=== PATIENT | female | born 1960 | race African-American/Black ===

== ENCOUNTER 2018-09-21 21:09 | Observation (INO) | payer OTHER ==
[2018-09-21 21:17] VITALS: BMI 40.3
--- NOTE | 2018-09-21 21:19 | PDOC ---
History of Present Illness - General Chief Complaint: Chest Pain Stated Complaint: COLD SYMPTOMS Time Seen by Provider: 09/21/18 21:19 - History of Present Illness Initial Comments: 09/21/18 23:20 The patient is a 58 year old female with a history of HTN, GERD who presents for evaluation of chest pain and shortness of breath. The patient reports a 2- 3 day history of chest heaviness that has been intermittent. She notes that she has not been feeling herself over the past 1 week and initially believed that she had a viral illness. However, she began experiencing shortness of breath with exertion today which was unusual for her prompting her presentation to the ED for further evaluation. She otherwise denies fevers, chills, nausea, vomiting, abdominal pain, leg swelling, recent long travel, or changes with urination or bowel movements. Past History - Past Medical History Allergies/Adverse Reactions: Allergies Allergy/AdvReac Type Severity Reaction Status Date / Time MONALISA Inhibitors Allergy Verified 09/21/18 21:14 Home Medications: Ambulatory Orders Albuterol Sulfate Inhaler - [Ventolin HFA Inhaler -] 1 - 2 inh PO QID PRN Omeprazole 40 mg PO DAILY 09/22/18 Valsartan 160 mg PO Q48H 09/22/18 COPD: No HTN: Yes Other medical history: acid reflux - Surgical History Cholecystectomy: Yes - Suicide/Smoking/Psychosocial Hx Smoking History: Never smoked Review of Systems - Review of Systems Comments:: 09/21/18 23:24 Constitutional: No fevers, chills, fatigue, malaise HEENT: No Rhinorrhea, nasal congestion, visual changes Cardiovascular: Chest heaviness. No syncope, palpitations, lightheadedness Respiratory: COB. No Cough, Hemoptysis, Gastrointestinal: No Abdominal pain, Nausea, Vomiting, Constipation, Diarrhea, Melena Genitourinary: No Dysuria, Frequency, Urgency, Hesitancy, Hematuria, Flank pain Musculoskeletal: No Myalgia, arthralgia Skin: No rashes, itching, bruising, pallor Neurologic: No Headache, Dizziness, Numbness, Weakness, or Tingling Psychiatric: No Hallucinations. No SI or HI *Physical Exam - Vital Signs Last Vital Signs Temp Pulse Resp BP Pulse Ox 98.4 F 86 18 144/100 100 09/21/18 21:14 09/21/18 21:14 09/21/18 21:14 09/21/18 21:14 09/21/18 21:14 - Physical Exam Comments: 09/21/18 23:25 General Appearance: Nourished. Obese, No Apparent Distress HEENT: No Pharyngeal Erythema, Tonsillar Exudate, Tonsillar Erythema Neck: No Cervical Lymphadenopathy Respiratory/Chest: Lungs Clear, Normal Breath Sounds. No Crackles, Rales, Rhonchi, Wheezing Cardiovascular: Regular Rhythm, Regular Rate. No Murmur, Gallops, Rubs Gastrointestinal/Abdominal: Normal Bowel Sounds, Soft. No Guarding, Rebound, Tenderness Musculoskeletal: No CVA Tenderness Extremity: Normal Capillary Refill Integumentary: Normal Color, Dry, Warm Neurologic: Fully Oriented, Alert, Normal Mood/Affect, Normal Response, Heart Score/ECG Review - History History: Slightly suspicious - Electrocardiogram EKG: Non specific repolarization disturbance - Age Age: 45-65 - Risk Factors Risk Factors Heart Score: Yes Hx Hypercholesterolemia, Yes Hx Hypertension, Yes Hx Obesity Based on the list above the patient has:: >/=3 risk factors or Hx atherosclerotic disease - Troponin Troponin: </= normal limit - Score Heart Score - Total: 4 #1 ECG reviewed & interpreted by me at: 23:26 General ECG Interpretation: Sinus Rhythm, Normal Rate, Normal Intervals, No acute ischemic changes ED Treatment Course - LABORATORY CBC & Chemistry Diagram: 09/22/18 06:05 09/22/18 06:05 Medical Decision Making - Medical Decision Making 09/21/18 23:26 The patient is a 58 year old female with a history of HTN, GERD who presents for evaluation of chest pain and shortness of breath. Differential includes but is not limited to: ACS, Arrhythmia, Pneumonia, Infectious, Metabolic Derangement. Given the patient's history and physical exam, we will obtain a cbc, cmp, troponin, bnp, ekg, chest plain film to evaluate further. We will continue to monitor and reassess while here in the ED. 23:55 CBC, cmp, troponin, bnp are unremarkable. Chest plain film is unremarkable. Given the patient's cardiac risk factors, we believe she requires observation admission for further management. *DC/Admit/Observation/Transfer Diagnosis at time of Disposition: Shortness of breath on exertion Chest pain Qualifiers: Chest pain type: unspecified Qualified Code(s): R07.9 - Chest pain, unspecified - Discharge Dispostion Condition at time of disposition: Improved Decision to Admit order: Yes - Referrals - Patient Instructions - Post Discharge Activity
--- NOTE | 2018-09-21 21:23 | PDOC ---
Attending Attestation - Resident Resident Name: Selwyn Tipton - ED Attending Attestation I have performed the following: I have examined & evaluated the patient, The case was reviewed & discussed with the resident, I agree w/resident's findings & plan, Exceptions are as noted <Neisha Moreno - Last Filed: 09/21/18 21:22> - HPI HPI: 09/21/18 21:50 The patient is a 58 year old female, with a significant past medical history of HTN and obese, who presents to the ED complaining of chest pain and shortness of breath for the past few days. She describes her chest pain as a heaviness sensation, ranging from mild to moderate. She denies any radiation. She reports that her shortness of breath is worsened with walking. She notes that she has not been feeling well lately and has been having nasal congestion associated with her chief complaint. The patient denies headache and dizziness. Denies fever, chills, nausea, vomiting, diarrhea or constipation. Allergies: MONALISA inhibitors Past surgical history: None reported Social History: No alcohol, tobacco or drug use reported - Physicial Exam PE: 09/21/18 21:50 Constitutional: Awake, alert, oriented. No acute distress. Head: Normocephalic. Atraumatic Eyes: PERRL. EOMI. Conjunctivae are not pale. ENT: Mucous membranes are moist and intact. Posterior pharynx without exudates or erythema. Uvula midline. Neck: Supple. Full ROM. No lymphadenopathy. Cardiovascular: Regular rate. Regular rhythm. S1, S2 regular. Distal pulses are 2+ and symmetric. Pulmonary/Chest: No evidence of respiratory distress. Clear to auscultation bilaterally No wheezing, rales or rhonchi. Abdominal: Soft and non-distended. There is no tenderness. No rebound, guarding or rigidity. No organomegaly. No palpable masses. Good bowel sounds. Back: No CVA tenderness. Musculoskeletal: No edema. No cyanosis. No clubbing. Full range of motion in all extremities. Nocalf tenderness. Radial/pedal pulses are intact and 2+ bilaterally Skin: Skin is warm and dry. No petechiae. No purpura. Neurological: Alert and oriented to person, place, and time. Cranial nerves II -XII are grossly intact. Normal speech. Strength is grossly symmetric. No sensory deficits. Psychiatric: Good eye contact. Normal interaction, affect and behavior. <Matteo Martin - Last Filed: 09/21/18 21:51>
[2018-09-21 21:56] LABS: BASO % 1.1 % (0-2.0); EOS % 1.2 % (0-4.5); HEMATOCRIT 39.4 % (32.4-45.2); HEMOGLOBIN 12.7 GM/dL (10.7-15.3); LYMPH % 39.4 % (8-40); MCH 26.7 pg (25.7-33.7); MCHC 32.2 g/dl (32.0-36.0); MEAN CELL VOLUME 82.9 fl (80-96); MEAN PLT VOLUME 9.2 fl (7.5-11.1); MONO % 7.6 % (3.8-10.2); NEUT % 50.7 % (42.8-82.8); PLATELET COUNT 205 K/MM3 (134-434); RBC 4.75 M/mm3 (3.60-5.2); RDW 14.8 % (11.6-15.6); WHITE BLOOD COUNT 8.1 K/mm3 (4.0-10.0)
[2018-09-21 22:24] LABS: ALBUMIN 3.5 g/dl (3.4-5.0); ALK PHOS 103 U/L (45-117); ANION GAP 7 MMOL/L (8-16); BILIRUBIN,TOTAL 0.4 mg/dL (0.2-1); BLOOD UREA NITROGEN 10 mg/dL (7-18); CALCIUM 8.8 mg/dL (8.5-10.1); CHLORIDE 109 mmol/L (98-107); CO2 25 mmol/L (21-32); CREATININE 0.9 mg/dL (0.55-1.3); GLUCOSE,RANDOM 86 mg/dL (74-106); POTASSIUM 3.9 mmol/L (3.5-5.1); SGOT/AST 20 U/L (15-37); SGPT/ALT 22 U/L (13-61); SODIUM 142 mmol/L (136-145); TOT PROT 7.4 g/dl (6.4-8.2)
--- NOTE | 2018-09-22 00:02 | HP ---
CHIEF COMPLAINT: chest pain , SOB upon walking. PCP:DR. Steve HISTORY OF PRESENT ILLNESS: The patient is a 58 year old female with a history of HTN, GERD who presents for evaluation of chest pain and shortness of breath. The patient reports a 2- 3 day history of chest heaviness that has been intermittent. She notes that she has not been feeling herself over the past 1 week and initially believed that she had a viral illness. However, she began experiencing shortness of breath with exertion today which was unusual for her prompting her presentation to the ED for further evaluation. She otherwise denies fevers, chills, nausea, vomiting, abdominal pain, leg swelling, recent long travel, or changes with urination or bowel movements. ER course was notable for: (1)cbc , cmp (2)Trop negative (3)EKG: NSR Recent Travel:denies PAST MEDICAL HISTORY: as per HPI PAST SURGICAL HISTORY: Cholecystectomy, Appendectomy Social History: Smoking:denies Alcohol:denies Drugs: denies Family History: Allergies MONALISA Inhibitors Allergy (Verified 09/21/18 21:14) HOME MEDICATIONS: REVIEW OF SYSTEMS CONSTITUTIONAL: Absent: fever, chills, diaphoresis, generalized weakness, malaise, loss of appetite, weight change HEENT: Absent: rhinorrhea, nasal congestion, throat pain, throat swelling, difficulty swallowing, mouth swelling, ear pain, eye pain, visual changes CARDIOVASCULAR: Absent: chest pain, syncope, palpitations, irregular heart rate, lightheadedness , peripheral edema RESPIRATORY: Absent: cough, shortness of breath, dyspnea with exertion, orthopnea, wheezing, stridor, hemoptysis GASTROINTESTINAL: Absent: abdominal pain, abdominal distension, nausea, vomiting, diarrhea, constipation, melena, hematochezia GENITOURINARY: Absent: dysuria, frequency, urgency, hesitancy, hematuria, flank pain, genital pain MUSCULOSKELETAL: Absent: myalgia, arthralgia, joint swelling, back pain, neck pain SKIN: Absent: rash, itching, pallor HEMATOLOGIC/IMMUNOLOGIC: Absent: easy bleeding, easy bruising, lymphadenopathy, frequent infections ENDOCRINE: Absent: unexplained weight gain, unexplained weight loss, heat intolerance, cold intolerance NEUROLOGIC: Absent: headache, focal weakness or paresthesias, dizziness, unsteady gait, seizure, mental status changes, bladder or bowel incontinence PSYCHIATRIC: Absent: anxiety, depression, suicidal or homicidal ideation, hallucinations. PHYSICAL EXAMINATION Vital Signs - 24 hr 09/21/18 21:14 Temperature 98.4 F Pulse Rate 86 Respiratory 18 Rate Blood Pressure 144/100 O2 Sat by Pulse 100 Oximetry (%) GENERAL: Awake, alert, and fully oriented, in no acute distress. HEAD: Normal with no signs of trauma. EYES: Pupils equal, round and reactive to light, extraocular movements intact, sclera anicteric, ENT: Moist mucous membranes. NECK: Normal range of motion, supple LUNGS: CTA B/L . No wheezes, and no crackles. No accessory muscle use. HEART: Regular rate and rhythm, normal S1 and S2 without murmur, rub or gallop. ABDOMEN: Obese, Soft, nontender, not distended, normoactive bowel sounds, no guarding, no rebound, Surgical scar MUSCULOSKELETAL: Normal range of motion at all joints. No bony deformities or tenderness. No CVA tenderness. LOWER EXTREMITIES: 2+ pulses, warm, well-perfused. No calf tenderness. No peripheral edema. NEUROLOGICAL: Cranial nerves II-XII intact. Normal speech. Normal gait. PSYCHIATRIC: Cooperative. SKIN: Warm, dry, Laboratory Results - last 24 hr 09/21/18 09/21/18 09/21/18 21:48 21:48 21:48 WBC 8.1 RBC 4.75 Hgb 12.7 Hct 39.4 MCV 82.9 MCH 26.7 MCHC 32.2 RDW 14.8 Plt Count 205 MPV 9.2 Absolute Neuts (auto) 4.1 Neutrophils % 50.7 Lymphocytes % 39.4 Monocytes % 7.6 Eosinophils % 1.2 Basophils % 1.1 Nucleated RBC % 0 Sodium 142 Potassium 3.9 Chloride 109 H Carbon Dioxide 25 Anion Gap 7 L BUN 10 Creatinine 0.9 Creat Clearance w eGFR > 60 Random Glucose 86 Calcium 8.8 Total Bilirubin 0.4 AST 20 ALT 22 Alkaline Phosphatase 103 Creatine Kinase 196 H Creatine Kinase Index 0.7 CK-MB (CK-2) 1.5 Troponin I < 0.02 B-Natriuretic Peptide 29.3 Total Protein 7.4 Albumin 3.5 CBC, [facility] 09/21/18 21:48 09/21/18 21:48 ASSESSMENT/PLAN: The patient is a 58 year old female with a history of HTN, GERD who presents for evaluation of chest pain and shortness of breath.admiited to obs tele to R/ O ACS . # Atypical Chest pain likely musclo skeletal can not R/O ACS unlikely PE , * pt work in mental facility with moving patient , reports musculo skeletal chest pain with different position but she reports SOB when walking * Trop negative , trend * EKG : NSR with no St, T wave changes * Echo * ESR, CRP * cxr * well score 0 * recent stress test within last year negative per pt , was done at [facility] out pt. # HTN , stable * resume valsartan 160 mg po Q 48 hr # Palpitation * UA * TSH # Morbid obesity * BMI of 40.4 kg * Educated about losing weight and exercise, change life style * consider Bariatric eval as out pt # FEN * No standing fluids * E: Monitor * N: Low sodium diet # Proph * Dvt: Scds Both legs , Lovenox 40 mg Po daily * GI: omeprazole daily # Dispo * admit to obs tele Visit type - Emergency Visit Emergency Visit: Yes ED Registration Date: 09/21/18 Care time: The patient presented to the Emergency Department on the above date and was hospitalized for further evaluation of their emergent condition. - New Patient This patient is new to me today: Yes Date on this admission: 09/22/18 - Critical Care Critical Care patient: No
[2018-09-22] MEDS ORDERED: IBUPROFEN 400 MG TABLET (FP) PO PRN (01:12)
[2018-09-22] MEDS ORDERED: ASPIRIN 81 MG CHEWABLE TABLETS PO ONE (01:17)
[2018-09-22] MEDS ORDERED: ASPIRIN 81 MG CHEWABLE TABLETS ONE (02:27)
--- NOTE | 2018-09-22 03:39 | PN ---
Teaching Attending Note Name of Resident: Brock Yusuf ATTENDING PHYSICIAN STATEMENT I saw and evaluated the patient. I reviewed the resident's note and discussed the case with the resident. I agree with the resident's findings and plan as documented. SUBJECTIVE: Seen and examined; please see resident note for further historical details. She is a 58 y/o AAF with a PMH of HTN and morbid obesity with BMI >40. She has had a stress test done within the pst 12 months at [facility] that we don't have the report for but are told by the patient it is negative. She presents with atypical chest pain associated with dyspnea on exertion. She is afebrile and hemodynamically stable saturating high 90s on RA. 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 It is reproducible on the R-side, L-side, and over the sternum; the palpation over the R/L sides is associated with pain in the pectoral muscles. SOB not at rest and wasn't sudden onset. She is at risk for BLOSSOM. Nonsmoker, nondrinker. She takes vasartan for her HTN. She will be admitted to the medicine service to r/o ACS. 10 sys ROS done and negative aside from HPI PMH and PSH reviewed FH negative for sudden cardiac Socially denies EtOH, tobacco, or drug abuse OBJECTIVE: VS, labs, imaging reviewed NAD, AAO, resting in bed RRR s1/2 no mgr Lungs CTAB with sym exp; limited exam 2/2 body habitus NT ND +BS in all 4 quadrants Skin without rashes or abbrasions CN2-12 wnl, no fnd -EKG shows NSR with Q waves in III and poor baseline to interpret for Q waves in aVF and II; repeat pending. No ST-T changes concerning for acute IA. ME interval 218 consistent with 1st degree AV block. -CXR without acute disease per my interpretation -Labs show unremarkable CBC, BMP, Coags, LFTs. Negative cardiac enz x1. BNP wnl. No prior CV records. CK only slightly over ULN (196 with 192 being upper limit). Repeat CE's pending. A1c, lipids, TSH pending. ASSESSMENT AND PLAN: Mrs. Mohan is a 58 y/o AAF with moderate risk factors for CAD and a self- reported negative stress test within 12 months who presents with atypical CP. 1) Atypical Chest Pain in Adult -Story is not suspicious for ACS but it may present atypically with females. Ddx is suspect for ACS vs. costochondritis; much less likely PE but can't r/o due to age >50 with PERC rule. Will monitor on telemetry, trend troponins, obtain old stress test records to confirm, and check an echo for the time being. Given her atypical sx, negative troponin, etc. in the setting of negative stress test within 12 months, it seems that this history argues against true ACS picture but will be vigilant. Checking a D-Dimer (sedetary lifestyle but not frankly immobile) but could be falsely elevated. PRN APAP for the potential costochondritis. Obtain labs to fully stratify her risk, 2) Dyspnea on Exertion -No records of desatting; never occurs at rest, only with exertion. We will go ahead and we will r/o ACS and get a D-dimer as mentioned above. No h/o reactive airway disease, not a current smoker. BMI is 40. If no desaturations or further sx inpatient and the aforementioned ACS/PE ruled out, we can likely proceed with an outpatient workup. Would be beneficial to obtain a sleep study as an outpatient and to do an ambulatory pulse ox. 3) HTN -Continue her home medication; adjust PRN in accordance with GDMT 3) Morbid obesity -Internal Affairs Investigator on lifestyle modifications prior to DC. 4) First Degree AV Block -Incidental finding on EKG; monitor. FENA -PO fluids encouraged -PRN replete -Cardiac Diet, low pamela -As tolerated Full Code
[2018-09-22 06:20] LABS: BASO % 0.6 % (0-2.0); EOS % 1.9 % (0-4.5); HEMATOCRIT 38.8 % (32.4-45.2); LYMPH % 36.8 % (8-40); MEAN CELL VOLUME 83.9 fl (80-96); MEAN PLT VOLUME 8.7 fl (7.5-11.1); MONO % 9.1 % (3.8-10.2); NEUT % 51.6 % (42.8-82.8); PLATELET COUNT 196 K/MM3 (134-434); RBC 4.63 M/mm3 (3.60-5.2); RDW 15.1 % (11.6-15.6); WHITE BLOOD COUNT 6.5 K/mm3 (4.0-10.0)
[2018-09-22 06:33] LABS: INR 1.05 (0.83-1.09); PROTHROMBIN TIME (PATIENT) 12.4 SEC (9.7-13.0)
[2018-09-22 06:51] LABS: ALBUMIN 3.3 g/dl (3.4-5.0); ALK PHOS 98 U/L (45-117); ANION GAP 4 MMOL/L (8-16); BILIRUBIN,TOTAL 0.3 mg/dL (0.2-1); BLOOD UREA NITROGEN 15 mg/dL (7-18); CALCIUM 9.1 mg/dL (8.5-10.1); CHLORIDE 110 mmol/L (98-107); CHOLESTEROL 179 mg/dL (50-200); CO2 30 mmol/L (21-32); GLUCOSE,RANDOM 103 mg/dL (74-106); MAGNESIUM 2.1 mg/dL (1.8-2.4); PHOSPHOROUS 3.6 mg/dL (2.5-4.9); POTASSIUM 4.1 mmol/L (3.5-5.1); SGOT/AST 20 U/L (15-37); SGPT/ALT 21 U/L (13-61); SODIUM 144 mmol/L (136-145); TOT PROT 6.8 g/dl (6.4-8.2)
[2018-09-22 06:57] LABS: CHOLESTEROL 183 mg/dL (50-200); HDL CHOLESTEROL 49 mg/dL (40-60); TRIGLYCERIDES 117 mg/dL (0-150)
[2018-09-22 07:51] VITALS: TEMP 97.9
[2018-09-22] MEDS ORDERED: VALSARTAN 80 MG TABLET (UD) ONE (09:54)
[2018-09-22] MEDS ORDERED: PANTOPRAZOLE 20 MG TABLET (FP) PO SCH (10:00)
[2018-09-22] MEDS ORDERED: ENOXAPARIN NA (PORCINE) 40 MG/0.4 ML DISP.SYRIN SQ SCH (10:00)
[2018-09-22] MEDS ORDERED: VALSARTAN 160 MG TABLET (UD) PO SCH (10:00)
[2018-09-22 10:07] VITALS: BP 158/69; PULSE 63
--- NOTE | 2018-09-22 10:54 | DS ---
Physical Examination Vital Signs: Vital Signs Temperature 97.9 F 09/22/18 10:06 Pulse Rate 63 09/22/18 10:06 Respiratory Rate 18 09/22/18 10:06 Blood Pressure 158/69 09/22/18 10:06 O2 Sat by Pulse Oximetry (%) 100 09/22/18 10:06 Findings/Remarks: denies chest tightness or chest pain. no SOB,reports being at her baseline. she reports coming to the hospital because she felt fatigued and tired with her chest tight walking in cold wheather . has h/o ASthma . PE: VS reviewed. NAD , MMM, CV: RRR, no JVD , no MRG Lungs: CTAB , good air entry . Ext : no edema , no erythema . Abd: obese, soft, old surgical scar. Non tender. MS: TTP in R sided chest wall, and on upper breast. breast exam: no masses or skin lesions. no LAP in axilla . no discharge from nipple . Labs: CBC, BMP 09/22/18 06:05 09/22/18 06:05 Discharge Summary Reason For Visit: SHORT OF BREATH ON EXERTION, CHEST PAIN Current Active Problems Chest pain (Acute) Shortness of breath on exertion (Chronic) Hospital Course: 58 y/o lady with h/o HTN, ASthma and and GERD who presented with chest tightness and R sided chest pain. on admission , her VS were stable. EKG showed sinus rhythm with [address] elevation in III, and no TWI. trop were neg . Her pain is thought to be MS due to the tenderness to palpation . her chest tightness is probably due to her asthma in cold wheather. chest xray was nL and D dimer was nl. EKG was repeated : with no change , likely J point elevation she had NL stess test a year ago per her , and was told it was nl. no further cardiac w/u to be don e LDL 118 ,but her framingham risk score 3%, no need fro statins. need US of ehr R breast as ou tpt , but no masses felt on exam. dispo : dc home f/u PCP . referred to resident clinic per request Condition: Improved - Instructions Diet, Activity, Other Instructions: YOu have presented with Chest tightness. and chest pain. your work up does not indicate a heart attack or a serious pathology. your muscles might be tender and painful - please follow with your PCP in 1 week. per your request , you were provided with Dr. Orozco contact info . for primary care - please stay up to date with your mammograms - you might need an US of your R breast due to pain and tenderness . your PCP can order - continue your home meds with no change Referrals: Elias Orozco MD [Staff Physician] - 1 Week Jaclyn Barber MD [Primary Care Provider] - 1 Week Disposition: HOME - Home Medications Comprehensive Discharge Medication List: Ambulatory Orders Albuterol Sulfate Inhaler - [Ventolin HFA Inhaler -] 1 - 2 inh PO QID PRN Omeprazole 40 mg PO DAILY 09/22/18 Valsartan 160 mg PO Q48H 09/22/18 This patient is new to me today: Yes Date on this admission: 09/22/18 Emergency Visit: No Critical Care patient: No - Discharge Referral Referred to [facility] Med [facility] No
--- NOTE | 2018-09-22 12:16 | EKG ---
Test Reason : Blood Pressure : / mmHG Vent. Rate : 056 BPM Atrial Rate : 056 BPM P-R Int : 234 ms QRS Dur : 088 ms QT Int : 418 ms P-R-T Axes : 023 048 043 degrees QTc Int : 403 ms SINUS BRADYCARDIA WITH 1ST DEGREE A-V BLOCK EARLY REPOLARIZATION WHEN COMPARED WITH ECG OF 22-SEP-2018 07:53, AL INTERVAL HAS INCREASED Confirmed by Artur Gagnon ([id number]) on 09/22/2018 12:15:26 PM Referred By: Confirmed By:Artur Gagnon
--- NOTE | 2018-09-22 12:33 | EKG ---
Test Reason : Blood Pressure : / mmHG Vent. Rate : 059 BPM Atrial Rate : 059 BPM P-R Int : 194 ms QRS Dur : 082 ms QT Int : 404 ms P-R-T Axes : 037 047 053 degrees QTc Int : 399 ms POOR DATA QUALITY, INTERPRETATION MAY BE ADVERSELY AFFECTED SINUS BRADYCARDIA NONSPECIFIC ST AND T WAVE ABNORMALITY ABNORMAL ECG WHEN COMPARED WITH ECG OF 21-SEP-2018 22:06, NO SIGNIFICANT CHANGE WAS FOUND Confirmed by Artur Gagnon ([id number]) on 09/22/2018 12:33:20 PM Referred By: Confirmed By:Artur Gagnon
--- NOTE | 2018-09-22 12:37 | EKG ---
Test Reason : Blood Pressure : / mmHG Vent. Rate : 058 BPM Atrial Rate : 058 BPM P-R Int : 218 ms QRS Dur : 086 ms QT Int : 404 ms P-R-T Axes : 023 037 033 degrees QTc Int : 396 ms SINUS BRADYCARDIA WITH 1ST DEGREE A-V BLOCK CANNOT RULE OUT ANTERIOR INFARCT , AGE UNDETERMINED ABNORMAL ECG WHEN COMPARED WITH ECG OF 15-DEC-2004 00:28, AL INTERVAL HAS INCREASED Confirmed by Artur Gagnon ([id number]) on 09/22/2018 12:37:37 PM Referred By: Confirmed By:Artur Gagnon
== END 2018-09-22 12:02 | disposition home or self-care (01) ==
LOC: JER 21:09 → JERBED 23:31
PROVIDERS: ADMIT Internal Medicine; ATTEND Internal Medicine
DX: R07.89 Other chest pain (principal); R06.00 Dyspnea, unspecified; I10 Essential (primary) hypertension; I44.0 Atrioventricular block, first degree; R00.2 Palpitations; E66.01 Morbid (severe) obesity due to excess calories; Z68.41 Body mass index [BMI] 40.0-44.9, adult; K21.9 Gastro-esophageal reflux disease without esophagitis
CPT/HCPCS: 36415; 71045-TC-FY; 80053; 80061; 82465; 82550; 82553; 83036; 83721; 83735; 83880; 84100; 84443; 84484; 85025; 85379; 85610; 85651; 86140; 93005; 93010; 99285-25; G0378

== ENCOUNTER 2019-05-13 01:27 | Emergency (ER) | payer OTHER ==
[2019-05-13] MEDS ORDERED: ACETAMINOPHEN 325 MG TABLET (FP) PO ONE (02:32)
[2019-05-13 02:33] VITALS: BP 167/88; PULSE 73; TEMP 98.2; BMI 41.0
[2019-05-13] MEDS ORDERED: ACETAMINOPHEN 325 MG TABLET (FP) ONE (02:34)
[2019-05-13] MEDS ORDERED: SODIUM CHLORIDE 1,000 ML IV STA (02:53)
[2019-05-13] MEDS ORDERED: METOCLOPRAMIDE HCL INJECTION 10 MG/2 ML VIAL IVPUSH ONE (02:53)
--- NOTE | 2019-05-13 02:54 | PDOC ---
History of Present Illness - General Chief Complaint: Headache Stated Complaint: SINUS PRESSURE, HEADACHE Time Seen by Provider: 05/13/19 02:32 History Source: Patient Exam Limitations: No Limitations - History of Present Illness Initial Comments: Pt is a 59 yo F, with PMH of HTN, GERD, migraines, and asthma, who is presenting with complaints of persistent congestion, dry cough, and frontal headache x1week. Pt states she was seen in an urgent care center while traveling in [place] 6 days ago, and was treated with prednisone (20 mg BID x5 day), flonase, albuterol inhaler, and augmentin (875 BID x10 d). Pt has been taking the medication as prescribed with minimal relief of symptoms. Pt has been taking PO tylenol and took 1 motrin this evening with no relief. Pt denies any fevers/chills, neck stiffness or back pain,vision changes, syncope, chest pain, palpitations, SOB, nausea/vomiting, abdominal pain, urinary symptoms, diarrhea/constipation, or leg swelling. Allergies: MONALISA (rash) PCP: Power Social: Pt denies any cigarette, alcohol, or drug use. Pt denies any recent travel or sick contacts. Surgical: no relevant history. Family: no relevant history. 05/13/19 03:29 Past History - Travel Traveled outside of the country in the last 30 days: No Close contact w/someone who was outside of country & ill: No - Past Medical History Allergies/Adverse Reactions: Allergies Allergy/AdvReac Type Severity Reaction Status Date / Time MONALISA Inhibitors Allergy Verified 05/13/19 02:13 Home Medications: Ambulatory Orders Albuterol Sulfate Inhaler - [Ventolin HFA Inhaler -] 1 - 2 inh PO QID PRN Omeprazole 40 mg PO DAILY 09/22/18 Valsartan 160 mg PO Q48H 09/22/18 Methylprednisolone [Medrol Dose Supa] 4 mg PO ASDIR #21 tablet 05/13/19 COPD: No HTN: Yes Hypercholesterolemia: Yes - Surgical History Cholecystectomy: Yes - Suicide/Smoking/Psychosocial Hx Smoking History: Never smoked Have you smoked in the past 12 months: No Information on smoking cessation initiated: No Hx Alcohol Use: No Drug/Substance Use Hx: No Review of Systems - Review of Systems Able to Perform ROS?: Yes Is the patient limited Frisian proficient: No Constitutional: Yes: Weight Stable. No: Chills, Diaphoresis, Fever, Loss of Appetite, Malaise, Weakness HEENTM: Yes: Nose Congestion. No: Eye Pain, Blurred Vision, Recent change in vision, Double Vision, Ear Pain, Nose Pain, Nose Bleeding, Hearing Loss, Throat Pain, Throat Swelling, Mouth Pain, Difficulty Swallowing Respiratory: Yes: Cough. No: Orthopnea, Shortness of Breath, Wheezing, Productive cough, Hemoptysis Cardiac (ROS): No: Chest Pain, Edema, Irregular Heart Rate, Lightheadedness, Palpitations, Syncope, Chest Tightness ABD/GI: No: Constipated, Diarrhea, Nausea, Poor Appetite, Poor Fluid Intake, Vomiting : No: Burning, Dysuria, Flank Pain, Pain, Urgency Musculoskeletal: No: Back Pain, Joint Pain, Muscle Pain, Muscle Weakness Integumentary: No: Rash Neurological: Yes: Headache. No: Numbness, Paresthesia, Weakness, Unsteady Gait , Dizziness Psychiatric: No: Sleep Pattern Change, Change in Appetite Endocrine: No: Increased Urine, Change in Weight Hematologic/Lymphatic: No: Anemia, Blood Clots, Easy Bleeding, Easy Bruising All Other Systems: Reviewed and Negative *Physical Exam - Vital Signs Last Vital Signs Temp Pulse Resp BP Pulse Ox 98.2 F 73 19 167/88 98 05/13/19 01:27 05/13/19 01:27 05/13/19 01:27 05/13/19 01:05/13/19 01:27 - Physical Exam Comments: HTN (167/88), pt afebrile. Pt in NAD, morbidly obese body habitus. Pt alert and oriented x3. photographer motion picture generally intact, muscular strength and sensation intact. No midline spinal tenderness, step-offs, or crepitus. No neck tenderness elicited with neck flexion or extension. Pt does not withdraw from the light. Head normocephalic, atraumatic. No TTP over face or sinuses. Eyes PERRLA, EOMI. Oropharynx without erythema or exudates, no LAD b/l. +nasal congestion, boggy nasal turbinates, b/l allergic shiners Hearing intact. Clear heart sounds, S1/S2, no JVD, b/l pedal edema, or heart murmur. Clear lung sounds, no respiratory distress, crackles, or accessory muscle use. + mild expiratory wheeze at L base No abdominal or CVA tenderness to palpation, no rebound, no guarding. Abdomen soft, non-distended, and with normoactive bowel sounds. Skin without jaundice or rash. 05/13/19 03:22 ED Treatment Course - LABORATORY CBC & Chemistry Diagram: 05/13/19 03:26 05/13/19 03:26 - RADIOLOGY Radiology Studies Ordered: Category Date Time Status CHEST PA & LAT [RAD] Stat Radiology 05/13/19 02:53 Ordered - Medications Given in the ED: ED Medications Discontinued Medications Generic Name Dose Route Start Last Admin Trade Name Freq PRN Reason Stop Dose Admin Acetaminophen 650 mg 05/13/19 02:32 05/13/19 02:36 Tylenol - PO 05/13/19 02:33 650 mg ONCE ONE Administration Medical Decision Making - Medical Decision Making Pt was seen at bedside, also will be seen by attending Dr. Rudd. Pt presenting with complaints of persistent congestion, dry cough, and frontal headache x1week. Pt states she was seen in an urgent care center while traveling in [place] 6 days ago, and was treated with prednisone (20 mg BID x5 day), flonase, albuterol inhaler, and augmentin (875 BID x10 d). Pt has been taking the medication as prescribed with minimal relief of symptoms. Pt has been taking PO tylenol and took 1 motrin this evening with no relief. Pt denies any fevers/chills, neck stiffness or back pain,vision changes, syncope, chest pain, palpitations, SOB, nausea/vomiting, abdominal pain, urinary symptoms, diarrhea/constipation, or leg swelling. Ordered work-up including CBC, CMP, chest x-ray, non-contrast CT of head and sinuses to eval for any abscess, head bleed. Likely atypical migraine or sinus headache. Provided 1 L IV NS, 25 mg IV benadryl, 10 mg IV reglan, 650 mg PO tylenol for improvement of headache. Will continue to reassess pt and monitor for symptomatic improvement. 05/13/19 03:24 Providing additional 10 mg IV decadron and albuterol nebs. CBC and CMP WNL Ct head and sinus showed clear sinuses, no acute pathology. Pt states head pain much improved after interventions. Pt can be discharged to home with follow-up. Pt advised to follow-up with PCP in 1-2 days. Strict return precautions provided with pt understanding. Sent medrol dose pack to pt pharmacy. 05/13/19 05:45 *DC/Admit/Observation/Transfer Diagnosis at time of Disposition: Cephalgia Qualifiers: Headache type: unspecified Headache chronicity pattern: acute headache Intractability: not intractable Qualified Code(s): R51 - Headache - Discharge Dispostion Disposition: HOME Condition at time of disposition: Improved Decision to Admit order: No - Prescriptions Prescriptions: Methylprednisolone [Medrol Dose Supa] 4 mg PO ASDIR #21 tablet - Referrals Referrals: Jaclyn Barber MD [Primary Care Provider] - - Patient Instructions Printed Discharge Instructions: DI for Sinus Headache Additional Instructions: You were seen in the ER today for headache. The results of your labs and imaging today were normal. We have sent steroids to your pharmacy, please take these as prescribed. Please follow-up with your primary care doctor within 1-2 days to discuss your visit and make sure your symptoms have improved. Please return to the ER if you have any worsening pain, development of fevers or chills , loss of consciousness, inability to tolerate food or fluids, or any other concerns. - Post Discharge Activity
--- NOTE | 2019-05-13 03:11 | PDOC ---
Attending Attestation - Resident Resident Name: Lashon Keller - ED Attending Attestation I have performed the following: I have examined & evaluated the patient, The case was reviewed & discussed with the resident, I agree w/resident's findings & plan - HPI HPI: 05/13/19 06:36 59-year-old female with nasal congestion and pressure as well as chest tightness. Patient thinks she might have sinusitis. She does not describe the headache as the worst in her life or thunderclap in onset. - Physicial Exam PE: 05/13/19 06:37 GENERAL: Awake, in no acute distress HEAD: No signs of trauma EYES: ENT: Moist mucosa NECK: Normal ROM, LUNGS:. Normal work of breathing., b/l exp wheezing HEART: Regular rate and rhythm, ABDOMEN: Soft, nondistended CHEST WALL: BACK: No midline tenderness. EXTREMITIES:. No erythema, or tenderness NEUROLOGICAL: Alert, SKIN: Warm, Dry - Medical Decision Making 05/13/19 06:38 59-year-old female with nasal/head pressure as well as shortness of breath Exam and history likely consistent with ALLERGIES/asthma exacerbation Plan for headache treatment as patient has history of migraines with Benadryl Reglan and fluids Duo nebs and IV steroids as well prior to discharge Patient advised to follow-up with her primary care physician
[2019-05-13 03:34] LABS: BASO % 1.2 % (0-2.0); HEMATOCRIT 39.1 % (32.4-45.2); HEMOGLOBIN 12.6 GM/dL (10.7-15.3); MCH 27.2 pg (25.7-33.7); MCHC 32.2 g/dl (32.0-36.0); MEAN CELL VOLUME 84.6 fl (80-96); MEAN PLT VOLUME 8.7 fl (7.5-11.1); NEUT % 55.8 % (42.8-82.8); PLATELET COUNT 235 K/MM3 (134-434); RBC 4.62 M/mm3 (3.60-5.2); RDW 14.9 % (11.6-15.6); WHITE BLOOD COUNT 10.3 K/mm3 (4.0-10.0)
[2019-05-13] MEDS ORDERED: METOCLOPRAMIDE HCL INJECTION 10 MG/2 ML VIAL ONE (03:48)
[2019-05-13 04:02] LABS: ALBUMIN 3.4 g/dl (3.4-5.0); BILIRUBIN,TOTAL 0.2 mg/dL (0.2-1); BLOOD UREA NITROGEN 16.7 mg/dL (7-18); CALCIUM 8.5 mg/dL (8.5-10.1); POTASSIUM 3.8 mmol/L (3.5-5.1); TOT PROT 7.3 g/dl (6.4-8.2)
[2019-05-13] MEDS ORDERED: ALBUTEROL SO4 0.083% IH SOL 2.5 MG/3 ML VIAL.NEB. NEB ONE ×2 (05:49→05:54)
[2019-05-13] MEDS ORDERED: DEXAMETHASONE SOD PHOSPHATE 10 MG/1 ML VIAL IVPUSH ONE (05:49)
[2019-05-13] MEDS ORDERED: DEXAMETHASONE SOD PHOSPHATE 10 MG/1 ML VIAL ONE (05:55)
== END 2019-05-13 06:40 | disposition home or self-care (01) ==
LOC: JER 01:27
PROC: 3E0F7GC Introduction of Other Therapeutic Substance into Respiratory Tract, Via Natural or Artificial Opening (ICD-10-PCS; principal; 2019-05-13)
PROC: 3E0337Z Introduction of Electrolytic and Water Balance Substance into Peripheral Vein, Percutaneous Approach (ICD-10-PCS; 2019-05-13)
PROC: 3E0333Z Introduction of Anti-inflammatory into Peripheral Vein, Percutaneous Approach (ICD-10-PCS; 2019-05-13)
PROC: 3E033GC Introduction of Other Therapeutic Substance into Peripheral Vein, Percutaneous Approach (ICD-10-PCS; 2019-05-13)
PROC: 3E033GC Introduction of Other Therapeutic Substance into Peripheral Vein, Percutaneous Approach (ICD-10-PCS; 2019-05-13)
DX: R51 Headache (principal); I10 Essential (primary) hypertension; K21.9 Gastro-esophageal reflux disease without esophagitis; J45.909 Unspecified asthma, uncomplicated; J45.901 Unspecified asthma with (acute) exacerbation; J30.9 Allergic rhinitis, unspecified
CPT/HCPCS: 36415; 70450-TC; 70486-TC; 71046-TC-FY; 80053; 85025; 94640; 96361; 96374; 96375; 99282-25; J1100; J7030

== ENCOUNTER 2019-07-14 13:34 | Emergency (ER) | payer SELFPAY, OTHER | END 2019-07-14 15:10 | disposition home or self-care (01) | LOC: JERFT 13:34 ==

== ENCOUNTER 2019-08-22 09:03 | Emergency (ER) | payer OTHER ==
[2019-08-22 09:11] VITALS: BP 130/93; PULSE 91; TEMP 97.7; BMI 43.2
--- NOTE | 2019-08-22 10:06 | PDOC ---
History of Present Illness - General Chief Complaint: Back Pain Stated Complaint: PAIN Time Seen by Provider: 08/22/19 09:57 History Source: Patient Exam Limitations: No Limitations - History of Present Illness Initial Comments: 08/22/19 10:33 Patient here with complaints of right upper back pain x4 days. States while at work was doing a lot of lifting and cleaning and thinks may have strained shoulder and upper back. Denies fever, denies any chest pain palpitations, no cough or respiratory issue. Has not taken any medication for relief of same. Was concerned may be kidneys as patient had significant kidney issues approximately 4 years ago with retroperitoneal swelling with kidney failure which has worked since resolved. Occurred: reports: other (4 days ) Severity: reports: mild, moderate Pain Location: reports: back Method of Injury: Yes: unknown Modifying Factors: improves with: None Loss of Consciousness: no loss of consciousness Associated Symptoms (Fall): denies symptoms Past History - Travel Traveled outside of the country in the last 30 days: No Close contact w/someone who was outside of country & ill: No - Past Medical History Allergies/Adverse Reactions: Allergies Allergy/AdvReac Type Severity Reaction Status Date / Time MONALISA Inhibitors Allergy Verified 08/22/19 09:11 Home Medications: Ambulatory Orders Albuterol Sulfate Inhaler - [Ventolin HFA Inhaler -] 1 - 2 inh PO QID PRN Omeprazole 40 mg PO DAILY 09/22/18 Valsartan 160 mg PO Q48H 09/22/18 Methylprednisolone [Medrol Dose Supa] 4 mg PO ASDIR #21 tablet 05/13/19 Cyclobenzaprine HCl 10 mg PO Q8H PRN #14 tablet 08/22/19 Naproxen [Naprosyn -] 500 mg PO BID #30 tablet 08/22/19 COPD: No GI Disorders: (ACID REFLUX) HTN: Yes Hypercholesterolemia: Yes - Surgical History Cholecystectomy: Yes - Psycho Social/Smoking Cessation Hx Smoking History: Never smoked Have you smoked in the past 12 months: No Hx Alcohol Use: No Drug/Substance Use Hx: No Review of Systems - Review of Systems Able to Perform ROS?: Yes Is the patient limited Ukrainian proficient: Yes Constitutional: Yes: Symptoms Reported, See HPI, Malaise. No: Fever HEENTM: Yes: See HPI. No: Symptoms Reported Respiratory: Yes: See HPI. No: Symptoms reported, Cough, Shortness of Breath Cardiac (ROS): No: Symptoms Reported ABD/GI: No: Symptoms Reported : Yes: See HPI. No: Symptoms Reported, Burning, Dysuria Musculoskeletal: Yes: Symptoms Reported, See HPI, Back Pain, Muscle Pain Integumentary: Yes: See HPI. No: Symptoms Reported, Bruising All Other Systems: Reviewed and Negative *Physical Exam - Vital Signs Last Vital Signs Temp Pulse Resp BP Pulse Ox 97.7 F 91 H 16 130/93 99 08/22/19 09:08 08/22/19 09:08 08/22/19 09:08 08/22/19 09:08 08/22/19 09:08 - Physical Exam General Appearance: Yes: Nourished, Appropriately Dressed, Apparent Distress, Mild Distress HEENT: positive: BERNARD, Normal ENT Inspection, TMs Normal, Pharynx Normal Neck: positive: Supple. negative: Tender Respiratory/Chest: positive: Lungs Clear, Normal Breath Sounds, Other Musculoskeletal: positive: Normal Inspection, Muscle Spasm (Tender tight musculature to the paravertebral lumbar spinous muscles. Has no bone tenderness crepitus or step-offs. Is ambulatory but walks slowly due to back spasm. Neurovascular intact to feet). 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 Back strain, will treat with NSAIDs and cyclobenzaprine 08/23/19 09:05 Discharge - Discharge Information Problems reviewed: Yes Clinical Impression/Diagnosis: Upper back strain Qualifiers: Encounter type: initial encounter Qualified Code(s): S29.012A - Strain of muscle and tendon of back wall of thorax, initial encounter Condition: Stable Disposition: HOME - Admission No - Additional Discharge Information Prescriptions: Cyclobenzaprine HCl 10 mg PO Q8H PRN #14 tablet PRN Reason: spasm Naproxen [Naprosyn -] 500 mg PO BID #30 tablet - Follow up/Referral - Patient Discharge Instructions Patient Printed Discharge Instructions: DI for Back Strain or Sprain Additional Instructions: Rest, no heavy lifting or exercise until pain is resolved Hot soaks to neck and low back as often as possible/hot showers or Jacuzzis No massage or therapy until spasm is gone Continue Naprosyn 500 mg tablet, 1 tablet every 8 hours for the next 3 days then as needed for pain and swelling Cyclobenzaprine 1-10mg every 8 hours as needed for spasm If not significant improvement within 24 hours with medication and rest regime, followup with private physician for change in medications and /or therapy. - Post Discharge Activity Work/Back to School Note: Back to Work
[2019-08-22 10:18] LABS: PH,URINE 5.5 (5.0-8.0); URINE APPEARANCE CLEAR; URINE BILIRUBIN NEGATIVE (NEGATIVE); URINE COLOR YELLOW; URINE GLUCOSE (UA) NEGATIVE (NEGATIVE); URINE KETONE TRACE (NEGATIVE); URINE LEUK ESTERASE NEGATIVE (NEGATIVE); URINE NITRITE NEGATIVE (NEGATIVE); URINE PROTEIN NEGATIVE (NEGATIVE)
== END 2019-08-22 10:48 | disposition home or self-care (01) ==
LOC: JER 09:03
DX: S29.012A Strain of muscle and tendon of back wall of thorax, initial encounter (principal); X58.XXXA Exposure to other specified factors, initial encounter; Y93.89 Activity, other specified; Y92.89 Other specified places as the place of occurrence of the external cause; Z88.8 Allergy status to other drugs, medicaments and biological substances; K21.9 Gastro-esophageal reflux disease without esophagitis; I10 Essential (primary) hypertension; E78.00 Pure hypercholesterolemia, unspecified
CPT/HCPCS: 81003; 87086; 99282-25

== ENCOUNTER 2020-01-03 14:21 | Emergency (ER) | payer OTHER ==
[2020-01-03 14:55] VITALS: BP 149/71; PULSE 75; TEMP 97; BMI 44.1
[2020-01-03] MEDS ORDERED: guaiFENesin/D-METHORPHAN HB 10 ML UNIT-DOSE CUPS PO ONE (15:51)
[2020-01-03] MEDS ORDERED: IBUPROFEN 600 MG TABLET (FP) PO ONE ×2 (15:51→15:53)
[2020-01-03] MEDS ORDERED: guaiFENesin/D-METHORPHAN HB 10 ML UNIT-DOSE CUPS ONE (15:53)
--- NOTE | 2020-01-03 15:54 | PDOC ---
History of Present Illness - General Chief Complaint: Cold Symptoms Stated Complaint: COLD SYMPTOMS Time Seen by Provider: 01/03/20 14:58 History Source: Patient Exam Limitations: No Limitations - History of Present Illness Initial Comments: 01/05/20 10:52 59 year old female with medical history of Asthma and GERD, and surgical history of cholecystectomy presents with cold symptoms since Sunday. Patient reports fever, chills and malaise. Denies coughing or nasal congestion. Is this a multiple visit Asthma Patient?: No Timing/Duration: reports: week Severity: reports: mild Possible Cause: Yes: no prior episodes Associated Symptoms: reports: cough, fever/chills. denies: nasal congestion, nasal drainage Past History - Travel Traveled outside of the country in the last 30 days: No Close contact w/someone who was outside of country & ill: No - Past Medical History Allergies/Adverse Reactions: Allergies Allergy/AdvReac Type Severity Reaction Status Date / Time MONALISA Inhibitors Allergy Verified 08/22/19 09:11 Home Medications: Ambulatory Orders Omeprazole 40 mg PO DAILY 09/22/18 Valsartan 160 mg PO Q48H 09/22/18 Methylprednisolone [Medrol Dose Supa] 4 mg PO ASDIR #21 tablet 05/13/19 Cyclobenzaprine HCl 10 mg PO Q8H PRN #14 tablet 08/22/19 Naproxen [Naprosyn -] 500 mg PO BID #30 tablet 08/22/19 Albuterol Sulfate Inhaler - [Ventolin HFA Inhaler -] 1 - 2 inh PO QID PRN #1 inhaler 01/03/20 COPD: No GI Disorders: (ACID REFLUX) HTN: Yes Hypercholesterolemia: Yes - Surgical History Cholecystectomy: Yes - Psycho Social/Smoking Cessation Hx Smoking History: Never smoked Have you smoked in the past 12 months: No Hx Alcohol Use: No Drug/Substance Use Hx: No Respiratory Specific PMHX - Complaint Specific PMHX Hx Airway Support: No Hx Asthma: No Hx Smoking Exposure: No Hx Allergic Rhinitis: No Hx Bronchitis: No Hx Pulmonary Embolus: No Review of Systems - Review of Systems Able to Perform ROS?: Yes Is the patient limited Amharic proficient: No Constitutional: Yes: Chills, Fever, Malaise HEENTM: No: Double Vision, Nose Pain, Nose Congestion, Throat Pain, Mouth Pain Respiratory: Yes: Cough. No: Wheezing, Productive cough Cardiac (ROS): No: See HPI, Chest Pain, Edema ABD/GI: No: Nausea, Poor Appetite, Vomiting : No: Burning, Dysuria Musculoskeletal: No: Back Pain, Muscle Pain Integumentary: No: Bruising, Erythema Neurological: No: Headache, Numbness, Paresthesia, Tingling *Physical Exam - Vital Signs Last Vital Signs Temp Pulse Resp BP Pulse Ox 97 F L 75 16 149/71 98 01/03/20 14:47 01/03/20 14:47 01/03/20 14:47 01/03/20 14:47 01/03/20 14:47 - Physical Exam General Appearance: Yes: Nourished, Appropriately Dressed HEENT: positive: BERNARD, TMs Normal, Pharynx Normal Neck: positive: Supple. negative: Lymphadenopathy (R), Lymphadenopathy (L) Respiratory/Chest: positive: Lungs Clear Cardiovascular: positive: Regular Rhythm, Regular Rate, S1, S2 Neurologic: positive: Fully Oriented, Alert Medical Decision Making - Medical Decision Making 01/05/20 10:55 59 year old female with medical history of Asthma and GERD, and surgical history of cholecystectomy presents with cold symptoms since Sunday. Patient reports fever, chills and malaise. URI 01/05/20 10:55 renew albuterol pump encourged fluids and rest Discharge - Discharge Information Problems reviewed: Yes Clinical Impression/Diagnosis: URI (upper respiratory infection) Qualifiers: URI type: unspecified viral URI Qualified Code(s): J06.9 - Acute upper respiratory infection, unspecified Condition: Improved Disposition: HOME - Admission No - Additional Discharge Information Prescriptions: Albuterol Sulfate Inhaler - [Ventolin HFA Inhaler -] 1 - 2 inh PO QID PRN #1 inhaler PRN Reason: Wheezing - Follow up/Referral Referrals: Fatemeh Daley [Primary Care Provider] - Call tomorrow - Patient Discharge Instructions Patient Printed Discharge Instructions: DI for Viral Upper Respiratory Infection -- Adult - Post Discharge Activity Work/Back to School Note: Back to Work
== END 2020-01-03 16:14 | disposition home or self-care (01) ==
LOC: JERFT 14:21
DX: J06.9 Acute upper respiratory infection, unspecified (principal); B97.89 Other viral agents as the cause of diseases classified elsewhere; I10 Essential (primary) hypertension; E78.00 Pure hypercholesterolemia, unspecified; K21.9 Gastro-esophageal reflux disease without esophagitis; Z88.8 Allergy status to other drugs, medicaments and biological substances
CPT/HCPCS: 99283-25

== ENCOUNTER 2021-07-12 22:12 | Emergency (ER) | payer OTHER ==
[2021-07-12 22:44] VITALS: BP 173/92; PULSE 81; TEMP 98.2; BMI 44.9
[2021-07-13] MEDS ORDERED: SODIUM CHLORIDE 0.9% 500 ML INFUS.BAG IV ONE (01:04)
[2021-07-13 01:42] LABS: EPI CELLS 5 /uL (0-25.1); HYALINE CASTS 0 /uL (0-3.1); URINE APPEARANCE CLEAR; URINE BACTERIA 323 /uL (0-1359); URINE BILIRUBIN NEGATIVE (NEGATIVE); URINE COLOR YELLOW; URINE GLUCOSE (UA) NEGATIVE (NEGATIVE); URINE KETONE NEGATIVE (NEGATIVE); URINE LEUK ESTERASE NEGATIVE (NEGATIVE); URINE NITRITE NEGATIVE (NEGATIVE); URINE PROTEIN NEGATIVE (NEGATIVE); URINE RBC 41 /uL (0-23.9); URINE UROBILINOGEN 0.2 mg/dL (0.2-1.0); URINE WBC 4 /uL (0-25.8)
[2021-07-13 01:54] LABS: HEMATOCRIT 39.5 % (32.4-45.2); HEMOGLOBIN 13.1 GM/dL (10.7-15.3); MCH 27.4 pg (25.7-33.7); MCHC 33.1 g/dl (32.0-36.0); MEAN CELL VOLUME 82.7 fl (80-96); MEAN PLT VOLUME 9.2 fl (7.5-11.1); PLATELET COUNT 227 10^3/uL (134-434); RBC 4.78 M/mm3 (3.60-5.2); RDW 14.7 % (11.6-15.6); WHITE BLOOD COUNT 9.2 K/mm3 (4.0-10.0)
[2021-07-13] MEDS ORDERED: ACETAMINOPHEN 1000 MG/100 ML VIAL (NON FORMULARY) IVPB ONE (02:06)
[2021-07-13 02:14] LABS: CHLORIDE 106 mmol/L (98-107); SODIUM 139 mmol/L (136-145)
[2021-07-13 02:17] LABS: ALBUMIN 3.7 g/dl (3.4-5.0); ANION GAP 5 MMOL/L (8-16); BLOOD UREA NITROGEN 12.5 mg/dL (7-18); CO2 27 mmol/L (21-32); GLUCOSE,RANDOM 115 mg/dL (74-106)
[2021-07-13 02:20] LABS: SGOT/AST 24 U/L (15-37); SGPT/ALT 34 U/L (13-61)
[2021-07-13 02:21] LABS: BILIRUBIN,TOTAL 0.3 mg/dL (0.2-1); TOT PROT 8.2 g/dl (6.4-8.2)
[2021-07-13 02:23] LABS: ALK PHOS 124 U/L (45-117)
== END 2021-07-13 03:23 | disposition home or self-care (01) ==
LOC: JER 22:12
PROC: 3E0333Z Introduction of Anti-inflammatory into Peripheral Vein, Percutaneous Approach (ICD-10-PCS; principal; 2021-07-12)
DX: R00.2 Palpitations (principal); R39.15 Urgency of urination
CPT/HCPCS: 36415; 71046-TC-FY; 80053; 81003; 83735; 84443; 84484; 85027; 87086; 93005; 93010; 99285-25; J0131

== ENCOUNTER 2021-12-27 07:11 | Emergency (ER) | payer OTHER ==
[2021-12-27 07:29] VITALS: BP 145/86; PULSE 67; TEMP 97.8; BMI 44.9
[2021-12-27] MEDS ORDERED: KETOROLAC TROMETHAMINE 60 MG/2 ML VIAL IM ONE (07:54)
[2021-12-27] MEDS ORDERED: KETOROLAC TROMETHAMINE 60 MG/2 ML VIAL ONE (07:56)
== END 2021-12-27 08:05 | disposition home or self-care (01) ==
LOC: JER 07:11
PROC: 3E0233Z Introduction of Anti-inflammatory into Muscle, Percutaneous Approach (ICD-10-PCS; principal; 2021-12-27)
DX: M54.50 Low back pain, unspecified (principal)
CPT/HCPCS: 99284-25

== ENCOUNTER 2022-09-23 07:34 | Emergency (ER) | payer OTHER ==
[2022-09-23 07:53] VITALS: RESP 20; TEMP 98.4; BMI 44.4
[2022-09-23] MEDS ORDERED: ALBUTEROL SO4 2.5/IPRATROPIUM 0.5 INH SOL 3 ML VIAL.NEB. NEB SCH (08:30)
[2022-09-23 09:11] LABS: BASO % 0.3 % (0-2.0); EOS % 0.2 % (0-4.5); HEMATOCRIT 41.5 % (32.4-45.2); HEMOGLOBIN 13.2 GM/dL (10.7-15.3); LYMPH % 44.1 % (8-40); MCH 26.9 pg (25.7-33.7); MCHC 31.9 g/dl (32.0-36.0); MEAN CELL VOLUME 84.6 fl (80-96); MEAN PLT VOLUME 9.2 fl (7.5-11.1); MONO % 11.9 % (3.8-10.2); NEUT % 43.5 % (42.8-82.8); PLATELET COUNT 193 10^3/uL (134-434); RBC 4.91 M/mm3 (3.60-5.2); RDW 14.6 % (11.6-15.6); WHITE BLOOD COUNT 5.9 K/mm3 (4.0-10.0)
[2022-09-23 09:44] LABS: CALCIUM 8.9 mg/dL (8.5-10.1)
[2022-09-23 09:45] LABS: ALBUMIN 3.6 g/dl (3.4-5.0); BLOOD UREA NITROGEN 13.9 mg/dL (7-18)
[2022-09-23 09:50] LABS: BILIRUBIN,TOTAL 0.4 mg/dL (0.2-1); TOT PROT 7.5 g/dl (6.4-8.2)
[2022-09-23 10:00] VITALS: BP 141/84; PULSE 91
== END 2022-09-23 10:00 | disposition home or self-care (01) ==
LOC: JER 07:34
DX: J09.X2 Influenza due to identified novel influenza A virus with other respiratory manifestations (principal); R05.1 Acute cough
CPT/HCPCS: 0241U-QW; 36415; 71046-TC-FY; 80053; 84484; 85025; 93005; 93010; 99285-25

== ENCOUNTER 2022-12-03 08:05 | Emergency (ER) | payer OTHER ==
[2022-12-03 08:38] VITALS: BP 139/83; PULSE 65; RESP 18; TEMP 97.9; BMI 44.4
[2022-12-03 10:14] LABS: BASO % 0.4 % (0-2.0); EOS % 1.1 % (0-4.5); HEMATOCRIT 38.9 % (32.4-45.2); HEMOGLOBIN 12.1 GM/dL (10.7-15.3); LYMPH % 36.2 % (8-40); MCH 26.6 pg (25.7-33.7); MCHC 31.2 g/dl (32.0-36.0); MEAN CELL VOLUME 85.2 fl (80-96); MEAN PLT VOLUME 9.4 fl (7.5-11.1); MONO % 9.8 % (3.8-10.2); NEUT % 52.5 % (42.8-82.8); PLATELET COUNT 190 10^3/uL (134-434); RBC 4.57 M/mm3 (3.60-5.2); RDW 14.9 % (11.6-15.6); WHITE BLOOD COUNT 5.4 K/mm3 (4.0-10.0)
[2022-12-03 10:20] LABS: INR 1.1 (0.83-1.09); PROTHROMBIN TIME (PATIENT) 12.7 SEC (9.7-13.0)
[2022-12-03 10:22] LABS: ACTIVATED PTT 37.8 SECONDS (25.2-36.5)
[2022-12-03 10:39] LABS: ALBUMIN 3.4 g/dl (3.4-5.0); CALCIUM 8.7 mg/dL (8.5-10.1)
[2022-12-03 10:40] LABS: BLOOD UREA NITROGEN 12.4 mg/dL (7-18)
[2022-12-03 10:42] LABS: CREATININE 0.9 mg/dL (0.55-1.3)
[2022-12-03 10:44] LABS: BILIRUBIN,TOTAL 0.5 mg/dL (0.2-1); TOT PROT 6.9 g/dl (6.4-8.2)
== END 2022-12-03 12:51 | disposition home or self-care (01) ==
LOC: JER 08:05
DX: R06.02 Shortness of breath (principal); R20.2 Paresthesia of skin; R07.9 Chest pain, unspecified
CPT/HCPCS: 0241U-QW; 36415; 71046-TC-FY; 80053; 84484; 85025; 85379; 85610; 85730; 86850; 86900; 86901; 93005; 93010; 99285-25

== ENCOUNTER 2022-12-15 11:39 | Emergency (ER) | payer OTHER ==
[2022-12-15 11:54] VITALS: BP 166/93; PULSE 81; RESP 20; TEMP 98.2; BMI 44.4
[2022-12-15] MEDS ORDERED: ACETAMINOPHEN 500 MG TABLET (FP) PO ONE (12:23)
[2022-12-15] MEDS ORDERED: ACETAMINOPHEN 500 MG TABLET (FP) ONE (12:29)
== END 2022-12-15 13:37 | disposition home or self-care (01) ==
LOC: JERFT 11:39
DX: R20.8 Other disturbances of skin sensation (principal)
CPT/HCPCS: 73590-TC-LT-FY; 99283-25

== ENCOUNTER → 2024-05-15 | Day surgery (SDC) | payer OTHER ==
[~2024-05-15] MED LIST: ACETAMINOPHEN 500 MG TABLET (FP) PO PRN; BUPIVACAINE HCL/PF 0.75% 10 ML VIAL ONE; LIDOCAINE HCL/PF 1% SDV 5ML VIAL ONE
[2024-05-15] MEDS: BUPIVACAINE HCL/PF 0.75% 10 ML VIAL PNB ONE
[2024-05-15] MEDS: LIDOCAINE 1% P/F 10 MG/ML VIAL PNB ONE
== END | disposition home or self-care (01) ==
LOC: JASU-SURG 04:24 → MERGE 10:45
PROVIDERS: ATTEND Pain Medicine Pain Medicine
DX: Z53.8 Procedure and treatment not carried out for other reasons (principal)

== ENCOUNTER 2024-05-29 06:27 | Day surgery (SDC) | payer OTHER ==
[2024-05-28 13:24] VITALS: BMI 45.4
[2024-05-29] MEDS ORDERED: LIDOCAINE HCL/PF 1% SDV 5ML VIAL ONE (07:13)
[2024-05-29] MEDS ORDERED: BUPIVACAINE HCL/PF 0.75% 10 ML VIAL ONE (07:13)
[2024-05-29] MEDS: BUPIVACAINE 0.75% IN DEXTROSE/PF 2ML AMPULE NR ONE (11:16)
[2024-05-29] MEDS: LIDOCAINE 1% P/F 10 MG/ML VIAL PNB ONE (11:17)
[2024-05-29 11:51] VITALS: BP 155/68; PULSE 54; RESP 16; TEMP 98
== END 2024-05-29 12:10 | disposition home or self-care (01) ==
LOC: JASU-SURG 06:27
PROVIDERS: ATTEND Pain Medicine Pain Medicine
PROC: 3E0T33Z Introduction of Anti-inflammatory into Peripheral Nerves and Plexi, Percutaneous Approach (ICD-10-PCS; 2024-05-29)
PROC: 3E0T3BZ Introduction of Anesthetic Agent into Peripheral Nerves and Plexi, Percutaneous Approach (ICD-10-PCS; principal; 2024-05-29 10:45)
DX: M47.816 Spondylosis without myelopathy or radiculopathy, lumbar region (principal)
CPT/HCPCS: 76000-TC-FY

== ENCOUNTER 2024-08-05 17:48 | Emergency (ER) | payer OTHER ==
[2024-08-05 17:56] VITALS: BP 158/93; PULSE 79; RESP 20; TEMP 98.6; BMI 43.2
[2024-08-05] MEDS ORDERED: ACETAMINOPHEN 325 MG TABLET (FP) ONE (18:51)
[2024-08-05] MEDS: ACETAMINOPHEN 500 MG TABLET (FP) PO ONE (19:00)
[2024-08-05 21:50] LABS: HIV INTERPRETATION NEGATIVE (NEGATIVE)
== END 2024-08-05 20:43 | disposition home or self-care (01) ==
LOC: JER 17:48
DX: M79.661 Pain in right lower leg (principal)
CPT/HCPCS: 36415; 86803; 87389; 93005; 93010; 93970-TC; 99285-25